=== PATIENT | female | born 1950 | race Caucasian/White ===

== ENCOUNTER 2017-12-01 09:04 | Emergency (ER) | payer BC ==
[~2017-12-01] VITALS: Ht 170.2 cm; Wt 73.5 kg
--- NOTE | 2017-12-01 09:04 | NUR ---
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 DX W SUPERFICIAL BLOOD CLOT OF LEFT LEG YESTERDAY AT [facility] FLEX RUBIN STARTED XARELTO. NO TRAUMA
--- NOTE | 2017-12-01 09:50 | NUR ---
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
[2017-12-01] MEDS ORDERED: HYDROCODONE/APAP 5/325MG 1 EACH TABLET ONE (09:55)
[2017-12-01] MEDS ORDERED: HYDROCODONE/APAP 5/325MG 1 EACH TABLET PO ONE (10:00)
--- NOTE | 2017-12-01 10:00 | NUR ---
PATIENT MEDICATED PER MD ORDERS.
--- NOTE | 2017-12-01 10:50 | NUR ---
US TECH AT BEDSIDE.
--- NOTE | 2017-12-01 11:45 | NUR ---
PATIENT AMBULATED WITH CRUTCHES, TOLERATED FAIRLY. NO COMPLICATIONS NOTED. MD INFORMED.
[2017-12-01] MEDS ORDERED: IBUPROFEN 600 MG TABLET PO ONE ×2 (11:58→12:00)
[2017-12-01 12:22] VITALS: BP 126/64
--- NOTE | 2017-12-01 12:24 | NUR ---
Patient discharged to home in stable condition. Written and verbal after care instructions given. Patient verbalizes understanding of instruction.
== END 2017-12-01 12:23 | disposition home or self-care (01) ==
LOC: ER 09:09
DX: M25.461 Effusion, right knee (principal); J18.9 Pneumonia, unspecified organism; M85.80 Other specified disorders of bone density and structure, unspecified site; Y95 Nosocomial condition; Z90.89 Acquired absence of other organs
CPT/HCPCS: 73560; 93971; 99284; A4606; Z7610

== ENCOUNTER 2022-02-26 14:55 | Emergency (ER) | payer BC ==
[~2022-02-26] VITALS: Ht 170.2 cm; Wt 62.6 kg
[2022-02-26 15:46] VITALS: BP 120/68
--- NOTE | 2022-02-26 16:10 | NUR ---
BIBS C/O "I was having pain in my calf last 6/7 went to see PMD got results today Ddimer was up. BUT pain gone now". AMBULATORY, PLACED ON BED, AAOX4.
--- NOTE | 2022-02-26 17:28 | NUR ---
Patient discharged to home in stable condition. Written and verbal after care instructions given. Patient verbalizes understanding of instruction.
== END 2022-02-26 17:28 | disposition home or self-care (01) ==
LOC: ER 14:58
DX: R79.1 Abnormal coagulation profile (principal)
CPT/HCPCS: 93971-TC

== ENCOUNTER 2022-10-05 19:26 | Emergency (ER) | payer BC ==
[~2022-10-05] VITALS: Ht 172.7 cm; Wt 63.5 kg
--- NOTE | 2022-10-05 20:13 | NUR ---
BIBS C/O DIFFUSED ABDOMINAL PAIN SINCE AM WITH DIARRHEA AND NAUSEA. PT A/OX4. TOLERATING R/A WELL WITH NO RESP DISTRESS. SAFETY MEASURES IN PLACE.
--- NOTE | 2022-10-05 20:27 | NUR ---
URINE COLLECTED AND SENT TO LAB
[2022-10-05 21:00] LABS: BILIRUBIN,URINE NEGATIVE (NEGATIVE); COLOR,URINE YELLOW (YELLOW); LEUKOCYTE ESTERASE ,URINE 1+ (NEGATIVE); NITRITE, URINE NEGATIVE (NEGATIVE); PROTEIN,URINE NEGATIVE (NEGATIVE); UGLUCOSE NEGATIVE (NEGATIVE); UROBILINOGEN,URINE 0.2 EU/dL (0.2)
[2022-10-05] MEDS ORDERED: ONDANSETRON HCL/PF - ER 4 MG/2 ML VIAL IV ONE (21:00)
[2022-10-05] MEDS ORDERED: IV NS 0.9% 1,000 ML IV ONE (21:00)
[2022-10-05] MEDS ORDERED: KETOROLAC TROMETHAMINE INJ 30 MG/ML VIAL IV ONE (21:00)
[2022-10-05 21:02] LABS: BACTERIA,URINE 1+ /HPF (None Seen); RBC,URINE 0-2 /HPF (0-2); URINE AMORPHOUS PHOSPHATES Moderate /HPF (None Seen)
[2022-10-05] MEDS ORDERED: KETOROLAC TROMETHAMINE 15 MG/ML VIAL ONE (21:04)
[2022-10-05] MEDS ORDERED: ONDANSETRON HCL/PF 4 MG/2 ML VIAL ONE (21:04)
[2022-10-05 21:05] LABS: BASOPHILS % (AUTO) 0.4 % (0.0-2.0); EOSINOPHILS % (AUTO) 1.3 % (0.0-6.0); HEMATOCRIT 40 % (33-45); HEMOGLOBIN 13.2 g/dL (11.5-14.8); LYMPHOCYTES # (AUTO) 1.3 K/uL (0.8-4.8); LYMPHOCYTES % (AUTO) 23.9 % (20.0-44.0); MEAN CORPUSCULAR HGB CONC 33 g/dl (31.0-36.0); MEAN CORPUSCULAR VOLUME 98 fL (82-100); MONOCYTES # (AUTO) 0.4 K/uL (0.1-1.30); MONOCYTES % (AUTO) 7.3 % (2.0-12.0); NEUTROPHILS # (AUTO) 3.6 K/uL (1.8-8.9); NEUTROPHILS % (AUTO) 67.1 % (43.0-81.0); PLATELET COUNT (AUTO) 208 K/uL (150-450); WHITE BLOOD COUNT (AUTO) 5.3 K/uL (4.3-11.0)
[2022-10-05 21:14] LABS: CALCIUM, SERUM 9.1 mg/dL (8.5-10.1); POTASSIUM 3.8 mmol/L (3.5-5.1)
--- NOTE | 2022-10-05 21:18 | NUR ---
IV LAC #20G S/L IV
[2022-10-05 21:21] LABS: ALBUMIN 3.6 g/dL (3.4-5.0); BILIRUBIN,DIRECT 0.1 mg/dL (0.0-0.2); BILIRUBIN,TOTAL 0.3 mg/dL (0.2-1.0); TOTAL PROTEIN, SERUM 7.5 g/dL (6.4-8.2)
[2022-10-05] MEDS ORDERED: DOCU100C36 PO (23:20)
[2022-10-05] MEDS ORDERED: CEPH500T PO (23:20)
--- NOTE | 2022-10-05 23:30 | NUR ---
Patient discharged to home in stable condition. Written and verbal after care instructions given. Patient verbalizes understanding of instruction. IV removed. Catheter intact and site benign. Pressure and 4x4 applied to site. No bleeding noted.
[2022-10-05 23:31] VITALS: BP 145/79
== END 2022-10-05 23:31 | disposition home or self-care (01) ==
LOC: ER 19:29
DX: N39.0 Urinary tract infection, site not specified (principal); K59.00 Constipation, unspecified; R10.31 Right lower quadrant pain; R10.32 Left lower quadrant pain; Z90.89 Acquired absence of other organs; Z79.899 Other long term (current) drug therapy
CPT/HCPCS: 99285; 74176; 96374; 96361; 96375; 85025; 80048; 87086; 83690; 80076; 81001; 36415; J2405; J7030; J1885

== ENCOUNTER 2025-08-02 16:12 | Emergency (ER) | payer BC ==
[~2025-08-02] VITALS: Ht 172.7 cm; Wt 64.0 kg
[2025-08-02] MEDS: LIDOCAINE 5% (PATCH) 1 EA PATCH TP STA (15:21)
[~2025-08-02 16:12] MED LIST: CEPH500T PO; DOCU100C36 PO
[2025-08-02] MEDS ORDERED: IBUP-1955 PO (17:10)
[2025-08-02] MEDS ORDERED: LIDO30AD10 TP (17:10)
[2025-08-02] MEDS ORDERED: METH4TAB3 PO (17:10)
[2025-08-02] MEDS ORDERED: CYCL5TAB PO (17:10)
[2025-08-02] MEDS ORDERED: LIDOCAINE 5% (PATCH) 1 EA PATCH TP ONE (17:17)
[2025-08-02] MEDS ORDERED: dexaMETHasone SOD PHOSPHATE 1 ML ONE (17:18)
[2025-08-02] MEDS ORDERED: CYCLOBENZAPRINE 10 MG TABLET ONE (17:18)
[2025-08-02] MEDS ORDERED: KETOROLAC TROMETHAMINE 15 MG/ML VIAL ONE (17:18)
[2025-08-02] MEDS: dexaMETHasone SOD PHOSPHATE 10 MG/ML VIAL IM ONE (17:21)
[2025-08-02] MEDS: CYCLOBENZAPRINE 10 MG TABLET PO ONE (17:22)
[2025-08-02] MEDS: KETOROLAC TROMETHAMINE 15 MG/ML VIAL IM ONE (17:22)
[2025-08-02 17:29] VITALS: BP 150/77; TEMP 98.3; O2SAT 98
== END 2025-08-02 17:29 | disposition home or self-care (01) ==
LOC: ER 16:18
DX: M54.41 Lumbago with sciatica, right side (principal); Z90.89 Acquired absence of other organs
CPT/HCPCS: 99284; 96372 ×2; J1885; J1100